=== PATIENT | female | born 1975 | race African-American/Black ===

== ENCOUNTER → 2024-03-21 10:02 | Outpatient (BNVA) | payer OTHER, SELFPAY | PROVIDERS: PCP Nurse Practitioner Family; Visit Provider Physician Assistant Medical | DX: S63.634A Sprain of interphalangeal joint of right ring finger, initial encounter (principal); X50.0XXA Overexertion from strenuous movement or load, initial encounter | CPT/HCPCS: 29130; 73140; 99202 ==

== ENCOUNTER → 2024-03-28 13:29 | Outpatient (BNVA) | payer OTHER, SELFPAY | PROVIDERS: PCP Nurse Practitioner Family; Visit Provider Physician Assistant Medical | DX: S63.634A Sprain of interphalangeal joint of right ring finger, initial encounter (principal); X50.0XXA Overexertion from strenuous movement or load, initial encounter | CPT/HCPCS: 99213 ==

== ENCOUNTER 2024-04-03 08:30 | Outpatient (REF) | payer OTHER, SELFPAY | END 2024-04-03 08:31 | disposition home or self-care (01) | LOC: HO.HOSX 08:30 | DX: M79.641 Pain in right hand (principal); S62.614D Displaced fracture of proximal phalanx of right ring finger, subsequent encounter for fracture with routine healing | CPT/HCPCS: 73130; 99202 ==

== ENCOUNTER 2024-04-03 09:51 | Outpatient (AMB) | payer OTHER, SELFPAY ==
--- NOTE | 2024-04-03 10:11 | A.OFFVIS_ITS ---
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 Patient expresses she was pulling a heavy load at work. Patient denies numbness, tingling. She states it is very painful to bend her right 4th digit but she has been working on ROM at home. Patient has been taking naproxen for pain with relief. Denies prior injuries or surgeries to the right hand. Patient disclosed she is diabetic but is unsure of her Metformin dose. 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 On that date, the patient reports that she was moving a large box full of cans, when she began to experience significant pain in the MCP joint and proximal phalanx of the right ring finger. Patient was previously evaluated and [facility], where she was placed in a splint at [facility] for follow-up with us. Today, the patient reports that her pain has improved, but it is still present, primarily localized on the dorsal aspect of the proximal phalanx of the right ring finger. Patient states that since being put in a splint, it has become difficult for her to make a closed fist with the ring and small fingers right hand. Patient denies any numbness or tingling of the right hand. No other acute complaints or concerns at this time. [facility] Social History (Updated 04/03/24 @ 10:16 by GINGER Lainez) Current occupational status: employed Current occupation: data warehouse administrator at [employer].... right handed Review of Systems Const All systems reviewed & are unremarkable except as noted in HPI and below Physical Exam Vital Signs: BMI result Body Mass Index 36.9 Extrem Other: Patient is alert, oriented, and in no acute distress. Neuro: Normal sensation of the tips of all digits of the right hand at this time Vascular: Cap refill brisk Pain: Patient reports significant tenderness to palpation of the dorsal aspect of the proximal phalanx of the right ring finger Patient reports mild to moderate tenderness to palpation of the volar aspect of the proximal phalanx of the right ring finger ROM: With encouragement, patient is able to make a closed fist and extend all digits of the right hand fully Skin: No lacerations or abrasions. General: No edema No ecchymosis, erythema, or evidence of infection. Psych: Appears grossly normal Affect normal Attitude cooperative Office Procedures AMB Fracture Care Details: Right ring finger proximal phalanx fracture Fracture Billing Code: Fracture Billing Code Results Reviewed Results Reviewed: X-rays obtained in the office today and independently reviewed by me, Amarjit Purcell PA-C, demonstrate nondisplaced fracture of the proximal phalanx base of the right ring finger. Assessment & Plan Assessment & Plan (1) Closed fracture of proximal phalanx of right ring finger: Code(s): S62.614A - Displaced fracture of proximal phalanx of right ring finger, initial encounter for closed fracture Category: Medical Plan 1. Nondisplaced right ring finger proximal phalanx base fracture Date of injury 03/20/2024 Patient is educated about this injury and the typical recovery course At this time, patient is informed that she will not require any surgical intervention, as her fracture is nondisplaced Patient is informed that she should franchesca tape the middle and ring fingers together with daytime activities to act as a moving splint Patient is educated that she should continue to work on range of motion of the right hand and wrist Patient is given a return to work no on a light duty basis, with a 2 lb weight restriction in her right hand Patient was amenable to this plan Patient will follow-up in 2-3 weeks with repeat x-rays for reassessment, sooner with any acute concerns Orders: Orders XR hand RT min 3V Today M79.641 - Pain in right hand Coding Level of Care Code New Pt Level 3 (02932) Diagnoses Closed fracture of proximal phalanx of right ring finger S62.614A CPT Codes Fracture Care - Fracture Billing Code: Fracture Billing Code ([id number])
[2024-04-03 10:17] VITALS: BMI 36.9
== END 2024-04-03 10:42 | disposition home or self-care (01) ==
LOC: HO.HOS 09:51
PROVIDERS: PCP Nurse Practitioner Family
DX: S62.644A Nondisplaced fracture of proximal phalanx of right ring finger, initial encounter for closed fracture (principal)
CPT/HCPCS: 99203

== ENCOUNTER 2024-04-15 08:40 | Outpatient (AMB) | payer OTHER, SELFPAY ==
--- NOTE | 2024-04-15 08:55 | MHC.OFFVIS ---
Vital Signs 04/15/24 08:58 Height 5 ft Weight 189 lb BMI 36.9 Handedness Right Intake Visit Reasons: OV- rt 4th digit finger injury-w/xrays Intake Note: Arcelia is a 48 year old right hand dominant female who presents today for a follow up visit for her fracture of proximal phalanx of right ring finger, DOI: 03/20/2024. Patient reports she has been working on finger ROM at home and feels she has slight improvement. Reports continued pain but not as intense as it was in the past. She reports a 5 out of 10 on the pain scale that comes and goes. She continues on light duty and has not been lifting greater than 2 lbs. Denies numbness and tingling. Allergies No Known Allergies Allergy (Verified 04/15/24 08:58) HPI HPI OV- rt 4th digit finger injury-w/xrays: Details: Patient is a 48-year-old female presents for evaluation of right ring finger pain, ongoing since injury on 03/20/2024. On that date, the patient reports that she was moving a large box full of cans, when she began to experience significant pain in the MCP joint and proximal phalanx of the right ring finger. Today, the patient reports that she is still experiencing pain at the base of the 4th proximal phalanx, but this has improved since previous evaluation. The patient states that there were a couple of instances where she attempted to do things, such as gripping the exact sooner if she uses to break down boxes at work or wringing out a dish towel, that did cause her significant discomfort, but she did not further attempt to these actions once she realize the amount of pain she was caused. Patient denies any repeat injury since previous evaluation. No other acute complaints or concerns at this time. 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 Neuro: Normal sensation of the tips of all digits of the right hand at this time Vascular: Cap refill brisk Pain: Patient reports tenderness to palpation of the dorsal aspect of the proximal phalanx of the right ring finger, improved from last visit Patient reports mild tenderness to palpation of the volar aspect of the proximal phalanx of the right ring finger, improved from last visit ROM: With encouragement, patient is able to make a closed fist and extend all digits of the right hand fully Skin: No lacerations or abrasions. General: No edema No ecchymosis, erythema, or evidence of infection. Psych: Appears grossly normal Affect normal Attitude cooperative Results Reviewed Results Reviewed: X-rays obtained in the office today and independently reviewed by me, Amarjit Purcell PA-C, demonstrate nondisplaced fracture of the proximal phalanx base of the right ring finger with evidence of interval bony healing. Assessment & Plan Assessment & Plan (1) Closed fracture of proximal phalanx of right ring finger: Code(s): S62.614A - Displaced fracture of proximal phalanx of right ring finger, initial encounter for closed fracture Category: Medical Plan 1. Nondisplaced right ring finger proximal phalanx base fracture Date of injury 03/20/2024 Patient is educated about this injury and the typical recovery course At this time, patient is informed that she will not require any surgical intervention, as her fracture is nondisplaced Patient is informed that she should franchesca tape the middle and ring fingers together with daytime activities to act as a moving splint Patient is educated that she should continue to work on range of motion of the right hand and wrist Patient is given a return to work no on a light duty basis, with a 2 lb weight restriction in her right hand Patient is also referred to occupational therapy for range of motion of the right hand, as she appears to have gotten somewhat stiff Patient was amenable to this plan Patient will follow-up in 3-4 weeks with repeat x-rays for reassessment, sooner with any acute concerns Orders: Orders XR hand RT min 3V Today M79.641 - Pain in right hand OT Evaluation and Treatment Today S62.614A - Displaced fracture of proximal phalanx of right ring finger, initial encounter for closed fracture Coding Level of Care Code Global (85721) Diagnoses Closed fracture of proximal phalanx of right ring finger S62.614A
[2024-04-15 08:58] VITALS: BMI 36.9
== END 2024-04-15 09:27 | disposition home or self-care (01) ==
PROVIDERS: PCP Nurse Practitioner Family
DX: S62.614A Displaced fracture of proximal phalanx of right ring finger, initial encounter for closed fracture (principal)
CPT/HCPCS: 99213

== ENCOUNTER 2024-04-15 08:40 | Outpatient (REF) | payer OTHER, SELFPAY | END 2024-04-15 08:41 | disposition home or self-care (01) | LOC: HO.HOSX 08:40 | PROVIDERS: PCP Nurse Practitioner Family | DX: S62.614D Displaced fracture of proximal phalanx of right ring finger, subsequent encounter for fracture with routine healing (principal) | CPT/HCPCS: 73130; 99212 ==

== ENCOUNTER 2024-05-06 08:05 | Outpatient (REF) | payer OTHER, SELFPAY ==
--- NOTE | ~2024-05-06 | XR_ITS ---
EXAMINATION: XR HAND RIGHT CLINICAL INFORMATION: Pain in right hand M79.641. COMPARISON: XR Right hand 04/15/2024 TECHNIQUE: PA, lateral, and oblique views of the right hand. FINDINGS: No fracture or malalignment. Small degenerative cyst at the volar aspect of the 3rd metacarpal head and the distal aspect of the 5th proximal phalanx at the PIP joint. No significant change. XR/XR hand RT min 3V IMPRESSION: No acute osseous abnormality. No significant change. Electronically signed by: Juno Cee MD 06/13/2024 11:12 AM [place]
== END 2024-05-06 08:06 | disposition home or self-care (01) ==
LOC: HO.HOSX 08:05
DX: M79.641 Pain in right hand (principal); S62.614D Displaced fracture of proximal phalanx of right ring finger, subsequent encounter for fracture with routine healing
CPT/HCPCS: 73130; 99212

== ENCOUNTER 2024-05-06 09:52 | Outpatient (AMB) | payer OTHER, SELFPAY ==
--- NOTE | 2024-05-06 10:12 | MHC.OFFVIS ---
Vital Signs 05/06/24 10:14 Height 5 ft Weight 189 lb BMI 36.9 Handedness Right Intake Visit Reasons: OV-FX of prox phalanx of Rt 4th digit DOI:03/20/24 Intake Note: Arcelia is a 48 year old right hand dominant female who presents today for a follow up visit for her fracture of proximal phalanx of right ring finger, DOI: 03/20/2024. Patient reports she has not started any OT because they have not contacted her. She expresses pain and stiffness when she attempts to make a closed fist. Denies numbness and tingling. Patient is currently working on light duty. Allergies No Known Allergies Allergy (Verified 05/06/24 10:15) HPI HPI OV-FX of prox phalanx of Rt 4th digit DOI:03/20/24: Details: Patient is a 48-year-old female who presents for follow-up evaluation of work injury fracture of proximal phalanx of the right ring finger, date of injury 03/20/2024. Today, the patient reports that her pain has improved since previous evaluation, but she does feel that her hand is very stiff and causes her significant discomfort to make a closed fist. The patient states that the pain on the dorsal aspect of the right ring finger at the level of the fracture only occurs when it was pushed on very hard. Patient states she has been compliant with a 2 lb weight restriction while at work, and has been attempting range of motion testing as much as possible while at home. Denies any numbness or tingling in the right hand. No other complaints or concerns at this time. 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 Neuro: Normal sensation of the tips of all digits of the right hand at this time Vascular: Cap refill brisk Pain: Patient reports no tenderness to palpation of the dorsal aspect of the proximal phalanx of the right ring finger Patient reports mild tenderness to palpation of the volar aspect of the proximal phalanx of the right ring finger ROM: With encouragement, patient is able to make a closed fist and extend all digits of the right hand fully Skin: No lacerations or abrasions. General: No edema No ecchymosis, erythema, or evidence of infection. Psych: Appears grossly normal Affect normal Attitude cooperative Results Reviewed Results Reviewed: X-rays obtained in the office today and independently reviewed by me, Amarjit Purcell PA-C, demonstrate nondisplaced fracture of the proximal phalanx base of the right ring finger with evidence of interval bony healing. Assessment & Plan Assessment & Plan (1) Closed fracture of proximal phalanx of right ring finger: Code(s): S62.614A - Displaced fracture of proximal phalanx of right ring finger, initial encounter for closed fracture Category: Medical Plan 1. Nondisplaced right ring finger proximal phalanx base fracture Date of injury 03/20/2024 Patient is educated about this injury and the typical recovery course At this time, patient is informed that she will not require any surgical intervention, as her fracture is nondisplaced Patient is informed that she should franchesca tape the middle and ring fingers together with daytime activities to act as a moving splint Patient is educated that she should continue to work on range of motion of the right hand and wrist Patient is given a return to work no on a light duty basis, with a 5 lb weight restriction in her right hand for the next 2 weeks, moving up to a 10 lb weight restriction into weeks until follow-up Patient is also referred to occupational therapy for range of motion of the right hand, as she appears to have gotten somewhat stiff Patient was amenable to this plan Patient will follow-up in 3-4 weeks with repeat x-rays for reassessment, sooner with any acute concerns Orders: Orders XR hand RT min 3V Today M79.641 - Pain in right hand Coding Level of Care Code Global (56933) Diagnoses Closed fracture of proximal phalanx of right ring finger S62.614A
[2024-05-06 10:14] VITALS: BMI 36.9
== END 2024-05-06 10:31 | disposition home or self-care (01) ==
PROVIDERS: PCP Nurse Practitioner Family
DX: S62.614A Displaced fracture of proximal phalanx of right ring finger, initial encounter for closed fracture (principal)
CPT/HCPCS: 99213

== ENCOUNTER 2024-06-03 09:37 | Outpatient (AMB) | payer OTHER, SELFPAY ==
--- NOTE | 2024-06-03 09:43 | MHC.OFFVIS ---
Vital Signs 06/03/24 09:47 Height 5 ft Weight 175 lb BMI 34.2 Handedness Right Intake Visit Reasons: OV-FX of prox phalanx of Rt 4th digit DOI:03/20/24 Intake Note: Arcelia is a 48 year old right hand dominant female who presents today for a follow up visit for her fracture of proximal phalanx of right ring finger, DOI: 03/20/2024. Patient states she started OT and finds it helpful so far. Denies pain, numbness and tingling. She states she does not have any concerns. Allergies No Known Allergies Allergy (Verified 06/03/24 09:46) HPI HPI OV-FX of prox phalanx of Rt 4th digit DOI:03/20/24: Details: Patient is a 48-year-old female who presents for follow-up evaluation of work injury fracture of proximal phalanx of the right ring finger, date of injury 03/20/2024. Today, the patient reports that her pain has improved since previous evaluation, and she does feel that her hand is much stiff and causes her no discomfort anymore. Patient states she has been compliant with previously prescribed work restrictions, and has been attempting range of motion testing as much as possible while at home. Patient reports that OT is going very well, and then her therapist we will be discharging her after visits Denies any numbness or tingling in the right hand. No other complaints or concerns at this time. 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 Neuro: Normal sensation of the tips of all digits of the right hand at this time Vascular: Cap refill brisk Pain: Patient reports no tenderness to palpation of the dorsal aspect of the proximal phalanx of the right ring finger Patient reports no tenderness to palpation of the volar aspect of the proximal phalanx of the right ring finger ROM: patient is able to make a closed fist and extend all digits of the right hand fully and without difficulty Skin: No lacerations or abrasions. General: No edema No ecchymosis, erythema, or evidence of infection. Psych: Appears grossly normal Affect normal Attitude cooperative Assessment & Plan Assessment & Plan (1) Closed fracture of proximal phalanx of right ring finger: Code(s): S62.614A - Displaced fracture of proximal phalanx of right ring finger, initial encounter for closed fracture Category: Medical Plan 1. Nondisplaced right ring finger proximal phalanx base fracture Date of injury 03/20/2024 Patient is educated about this injury and the typical recovery course At this time, patient is informed that she will not require any surgical intervention, as her fracture is nondisplaced Patient is informed that she no longer requires franchesca taping from an orthopedic perspective Patient is educated that she should continue to work on range of motion of the right hand and wrist Patient is given a return to work note no active restrictions at this time Patient is also advised to continue occupational therapy for range of motion of the right hand Patient was amenable to this plan Patient will follow-up as needed with any acute concerns Coding Level of Care Code Global (69719) Diagnoses Closed fracture of proximal phalanx of right ring finger S62.614A
[2024-06-03 09:47] VITALS: BMI 34.2
== END 2024-06-03 10:01 | disposition home or self-care (01) ==
PROVIDERS: PCP Nurse Practitioner Family
DX: S62.614A Displaced fracture of proximal phalanx of right ring finger, initial encounter for closed fracture (principal)
CPT/HCPCS: 99213

== ENCOUNTER → 2024-06-03 09:37 | Outpatient (BNVA) | payer OTHER, SELFPAY | PROVIDERS: PCP Nurse Practitioner Family | DX: S62.614D Displaced fracture of proximal phalanx of right ring finger, subsequent encounter for fracture with routine healing (principal) | CPT/HCPCS: 99212 ==

== ENCOUNTER 2024-06-07 11:11 | Outpatient (RCR) | payer OTHER, SELFPAY ==
--- NOTE | 2024-05-13 14:38 | MHC.OT.EP ---
[address] [phone] Occupational Therapy Plan of Care Patient Name: Arcelia Lynn Date of Evaluation: 05/13/24 Diagnosis: Pt is a 48 yr. 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 Pt reports pulling the 12pk of cans too hard that day. The next day pt. reports waking up and not being able to move her hands. She went to [facility] and an X-ray was taken; she was diagnosed w/ a proximal phalanx fracture of 4th digit and placed in a splint. She had a follow up w/ the PA (Binh) and he told her to franchesca tape her RF/MF P1 and P 2. Pt reports stiffness w/ ROM. She was referred to skilled OT Therapy for increased ROM, strength, and functional use of her dominant hand Pain Location: Pain Score: 5 Pain Scale Used: Numeric (0 - 10) Aggravating Factors: Lifting heavy ; ( pt instructed by PA to not lift over 5lbs), repetitive gripping Alleviating Factors: Tylenol/ Advil Assessment: Pt is a 48 yr. 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 Pt reports pulling the 12pk of cans too hard that day. The next day pt. reports waking up and not being able to move her hands. She went to [facility] and an X-ray was taken; she was diagnosed w/ a proximal phalanx fracture of 4th digit and placed in a splint. She had a follow up w/ the PA Reshma) and he told her to franchesca tape her RF/MF P1 and P 2. Pt reports stiffness w/ ROM. 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 Thank you once again for your referral.
--- NOTE | 2024-06-07 13:56 | MHC.OT.DC ---
[address] [phone] F: [phone] Occupational Therapy Discharge Note Patient Name: Arcelia Lynn Provider: Amarjit Purcell Diagnosis: Proximal phalanx fracture R RF Date of Surgery: Date of Evaluation: 05/13/24 Date of Discharge: Treatments to Date: 4 Cancellations to Date: No Shows to Date: Discharge Status: Achieved Goals Improved Function Independent with HEP Discharge Summary: Patient is discharged from skilled Occupational therapy as she has achieved all of her goals and has returned to full duty at work. Electronically Signed By: CLARENCE Flaherty/L, CLT Reviewed/agree with student documentation: N/A Therapist: Please Sign and return to therapist, thank you for your referral.
== END 2024-06-07 13:57 | disposition home or self-care (01) ==
LOC: HO.OT 11:11
DX: S62.614A Displaced fracture of proximal phalanx of right ring finger, initial encounter for closed fracture (principal)
CPT/HCPCS: 97110; 97140; 97165